=== PATIENT | female | born 1990 | race Caucasian/White ===

== ENCOUNTER → 2023-10-15 07:12 | Outpatient (REF) | payer OTHER, SELFPAY | LOC: HWRAD 07:12 | PROVIDERS: ATTENDING PHYSICIAN Family Medicine | DX: R10.11 Right upper quadrant pain (principal); R12 Heartburn | CPT/HCPCS: 76700 ==

== ENCOUNTER 2024-01-02 06:27 | Day surgery (SDC) | payer OTHER, SELFPAY ==
[2023-12-13 06:42] VITALS: BMI 48.9
[2023-12-13 08:56] LABS: Hematocrit 42.7 % (37.0-47.0); Hemoglobin 13.7 g/dL (12.0-16.0); Mean Corp Hgb Conc. 32.1 g/dL (33.0-37.0); Mean Corpuscular Hgb 25.8 pg (27.0-31.0); Mean Corpuscular Volume 80.6 fL (81.0-99.0); Mean Platelet Volume 11.1 fL (7.4-10.4); Platelet Count 326 10^3/uL (130-400); Red Cell Dist. Width 14.3 % (11.5-14.5); White Blood Cell Count 7.8 10^3/uL (4.8-10.8)
[2023-12-13 09:30] LABS: ALT (SGPT) 25 U/L (0-35); AST (SGOT) 28 U/L (14-36); Albumin 4.7 g/dl (3.5-5.0); Alkaline Phosphatase 61 U/L (38-126); Blood Urea Nitrogen 15 mg/dl (7-17); Carbon Dioxide 19 mmol/L (22-30); Chloride 105 mmol/L (98-107); Estimated Creatinine Clearance > 125 ml/min; Glucose 88 mg/dl (70-99); Potassium 4.5 mmol/L (3.5-5.1); Sodium 137 mmol/L (135-145); Total Bilirubin 0.5 mg/dl (0.2-1.3); Total Protein 7.9 g/dl (6.3-8.2); eGFR > 60.00
[2024-01-02] VITALS (12 sets, daily range): BP systolic 114–162; BP diastolic 65–84; BMI 48.9
[2024-01-02] MEDS: NORMOSOL-R 1000 IV (13:16)
[2024-01-02] MEDS: DILAUDID 0.5 MG IV (15:56)
[2024-01-02] MEDS: DILAUDID 0.25 MG IV (16:24)
== END 2024-01-02 18:10 | disposition home or self-care (01) ==
LOC: SDS 06:27
PROVIDERS: ATTENDING PHYSICIAN Surgery; FAMILY PHYSICIAN Internal Medicine
DX: K80.10 Calculus of gallbladder with chronic cholecystitis without obstruction (principal); K80.20 Calculus of gallbladder without cholecystitis without obstruction
CPT/HCPCS: 47563; 88304; 36415; 74300; 76000; 80053; 85027

== ENCOUNTER → 2024-02-14 12:59 | Outpatient (REF) | payer OTHER, SELFPAY | LOC: HWEVLT 12:59 | PROVIDERS: ATTENDING PHYSICIAN Radiology Vascular & Interventional Radiology | DX: I83.892 Varicose veins of left lower extremity with other complications (principal) | CPT/HCPCS: 93971 ==

== ENCOUNTER → 2024-04-24 14:23 | Outpatient (REF) | payer OTHER, SELFPAY | LOC: HWEVLT 14:23 | PROVIDERS: ATTENDING PHYSICIAN Radiology Vascular & Interventional Radiology | DX: I83.892 Varicose veins of left lower extremity with other complications (principal) | CPT/HCPCS: 36478; C1769 ==

== ENCOUNTER → 2024-05-08 07:32 | Outpatient (REF) | payer OTHER, SELFPAY | LOC: HWEVLT 07:32 | PROVIDERS: ATTENDING PHYSICIAN Radiology Diagnostic Radiology | DX: I83.892 Varicose veins of left lower extremity with other complications (principal) | CPT/HCPCS: 93971 ==

== ENCOUNTER → 2025-02-23 14:55 | Outpatient (REF) | payer OTHER, SELFPAY | LOC: HWRAD 14:55 | PROVIDERS: ATTENDING PHYSICIAN Internal Medicine | DX: M79.671 Pain in right foot (principal) | CPT/HCPCS: 73630 ==